=== PATIENT | male | born 1950 | race Two or more races ===

== ENCOUNTER 2021-04-29 14:59 | Emergency (ER) | payer MEDICARE ==
[~2021-04-29] VITALS: Ht 175.3 cm; Wt 72.7 kg
[2021-04-29 16:42] VITALS: BP 162/107
[2021-04-29 17:26] LABS: COVID AG,FIA SOURCE NASOPHARYNGEAL
[2021-04-29 17:34] LABS: AMPHET/METH SCREEN,URINE POSITIVE (NEGATIVE); BARBITURATE SCREEN, URINE NEGATIVE (NEGATIVE); BENZODIAZEPINES SCREEN,URINE NEGATIVE (NEGATIVE); CANNABINOID SCREEN,URINE NEGATIVE (NEGATIVE); COCAINE SCREEN,URINE NEGATIVE (NEGATIVE); METHADONE SCREEN, URINE NEGATIVE (NEGATIVE); OPIATE SCREEN,URINE POSITIVE (NEGATIVE)
[2021-04-29 17:37] LABS: PHENCYCLIDINE SCREEN,URINE NEGATIVE (NEGATIVE)
== END 2021-04-29 18:13 | disposition left against medical advice (07) ==
LOC: EMS 15:02
DX: R41.82 Altered mental status, unspecified (principal); F11.10 Opioid abuse, uncomplicated; F17.210 Nicotine dependence, cigarettes, uncomplicated; Z20.822 Contact with and (suspected) exposure to COVID-19
CPT/HCPCS: 99283